=== PATIENT | female | born 1980 | race Caucasian/White ===

== ENCOUNTER 2022-12-10 06:27 | Day surgery (SDC) | payer OTHER, SELFPAY ==
[2022-12-10] VITALS (8 sets, daily range): BP systolic 105–149; BP diastolic 70–106; PULSE 80–98; RESP 12–32; TEMP 36–36.8; O2SAT 96–100; BMI 38.7
[2022-12-10] MEDS: LACTATED RINGERS 1,000 ML 100 ML IV ×2 (07:10→08:21)
--- NOTE | 2022-12-10 07:36 | PM.GYNHP.1 ---
History of Present Illness History of Present Illness Reason for admission: urinary incontinence Narrative: Ana Phillips is a 42 year old female 6 para 4 who presents for a TVT with cystoscopy due to stress urinary incontinence. [facility] Surgical History (Updated 12/31/17 @ 05:29 by Conversion Provider) History of third molar tooth extraction Status post dilation and curettage Status post laparoscopic cholecystectomy Status post laparoscopic supracervical hysterectomy (05/16/10) Social History household members: spouse and children Smoking Status: Never smoker alcohol intake: never Meds Home Medications and Allergies Home Medications Medication Instructions Recorded Confirmed Type adalimumab 40 mg/0.8 mL 40 mg SUBCUT Q2W 11/29/20 12/10/22 History subcutaneous syringe kit (Humira) Allergies Allergy/AdvReac Type Severity Reaction Status Date / Time gluten Allergy Severe Diarrhea Verified 12/10/22 06:58 adhesive Allergy Mild LOCAL RASH Verified 12/10/22 06:44 Exam Vital Signs (past 8 hours): - 12/10/22 06:47 Temperature 98.0 F Pulse Rate 86 Respiratory Rate 20 Blood Pressure 149/106 H Pulse Oximetry 98 Oxygen Delivery Method Room Air Oxygen Delivery Method Room Air Narrative Exam Narrative: HEENT: No thyromegaly, no anterior cervical or supraclavicular lymphadenopathy. Lungs: Clear to auscultation bilaterally, no wheezes. Cardiovascular: Regular rate and rhythm, no murmurs, rubs, or gallops. Abdomen: Well-healed laparoscopy scars. No hepatosplenomegaly. No masses palpable. External genitalia: Normal Vagina: Increased urethrovesical angle with Valsalva Cervix: Well-supported Bimanual exam: Uterus absent. No masses or tenderness Assessment & Plan Assessment & Plan narrative: Assessment: 42-year-old 6 para 4 with stress urinary incontinence Plan: TVT with cystoscopy The risks, benefits, and alternatives to the procedure were explained to the patient. The risks including bleeding, infection, injury to the urethra, bladder, or ureters. She understands these risks and agrees to proceed. A full par Q was held and consent form was signed. Time Spent With Patient Time with patient: less than 30 minutes
--- NOTE | 2022-12-10 07:38 | PM.PREOP ---
Pre-operative Note COVID-19 Criteria for continued procedure: Non-surgical alternatives not available or appropriate per current SOC Interval Note History & Physical reviewed/Exam performed by Physician: Yes Changes to H&P: No H&P completed within 30 days and has changed as indicated here:: 12/10/22
[2022-12-10] MEDS: CEFAZOLIN 2 GM/100 ML PREMIX 100 ML IV (07:55)
--- NOTE | 2022-12-10 08:14 | SUR.OPER ---
Lithotomy on padded OR bed, head on pillow, arms secured on padded arm boards at <90 degrees abduction. Legs secured in padded yellow fins stirrups.
[2022-12-10] MEDS: BUPIVACAINE 0.25% (PF) 30 ML, EPINEPHrine 0.15 MG INJ (08:25)
[2022-12-10] MEDS: ONDANSETRON 4 MG/2 ML INJ IV (09:41)
[2022-12-10] MEDS: OXYCODONE/ACETAMINOPHEN 5/325 TABLET 1 TAB PO (10:11)
--- NOTE | 2022-12-10 12:07 | P.OP_ITS ---
Operative Date/Time/Diagnoses Date of procedure: 12/10/22 Time of procedure: 09:10 Pre-op diagnosis: Stress urinary incontinence Increased urethrovesical angle with Valsalva Post-op diagnosis: same Procedure & Clinicians Procedure: Procedures Operation Date: 12/10/22 07:45 Actual Procedure Side Surgeon ayden TVVance w. cystoscopy (sling procedure) Not Applicable Lizy Dong MD Indications: Stress urinary incontinence Increased urethrovesical angle with Valsalva Surgeon: Lizy Dong Anesthesia Type: General and Local Operative Notes Findings: Increased urethrovesical angle with Valsalva Closure Type: primary Specimen(s): none Estimated blood loss (mL): 75 Blood products transfused: none Procedure in detail: Informed consent was obtained. The patient was taken to the operating room where she was placed in the dorsal supine position. After adequate general endotracheal anesthesia was achieved, she was placed in the dorsal lithotomy position, and prepped and draped in the usual sterile fashion. A time-out was performed. On her abdomen the midline was marked just above the pubic symphysis as well as 2 cm lateral on each side with a marker. 100 cc of sterile saline was injected above the pubic symphysis with a 20 gauge spinal needle. This was to dissect out the space of Retzius. Attention was then turned to the vagina where weighted speculum was placed into the vagina. Allis clamps were placed lateral to the urethral meatus. A catheter was placed into the bladder and the bladder was emptied of clear yellow urine. 3 cc of 0.25% Marcaine with epinephrine were injected submucosally proximally 1.5 cm away from the urethral meatus. This incision was dissected out laterally with the Metzenbaum scissors. A rigid catheter was placed into the bladder. With the bladder retracted away from the patient's right side, 10 cc of 0.25% Marcaine with epinephrine were injected in the proposed pass of the TVT. This was repeated on the patient's left side with the bladder retracted away from the patient's right side. The proposed pass was dissected out with Hegar dilators to the # 7, with the bladder neck retracted away from the patient's side being work done. The TVT was loaded on the introducer. With the bladder retracted away from the patient's right side the TVT was directed towards the patient's right shoulder, perforating the urogenital diaphragm, and coming up behind the pubic symphysis proximally 2 cm away from the midline. A 3 mm incision was made and the plastic introducer was grasped with a Tenisha. The TVT was taken off of the introducer. This was repeated on the patient's left side with the bladder neck retracted away from the patient's left side. The rigid portion of the catheter was removed from the Green. The bladder was filled with 240 cc of sterile water. The Green was r emoved from the bladder. A cystoscopy was performed. There was a bubble at the dome of the bladder. The TVT was not seen in the bladder. The introducers were pulled up with a pickup between the TVT and the urethra to prevent over tightening. The patient was made to cough. There was no leakage of fluid. The plastic sheaths were removed from the TVT by pulling up with hemostats on the abdomen, keeping a pickup between the TVT and the urethra to prevent over tightening. The TVT was cut below the skin level with scissors. Pressure was held for hemostasis. There was some bleeding noted from the vaginal incision. Pressure was held for 5 minutes. Hemostasis was achieved. The mucosa was closed with 2-0 Vicryl in a running interlocking fashion with care not to include the TVT in the suture. The abdominal incisions were closed with surgical glue. Proximally 120 cc of the water was removed from the bladder. This was clear. Sponge, lap, and instrument counts were correct x2. The patient tolerated the procedure well, and was taken to PACU in stable condition. Complications: none Post-operative Condition: stable Disposition: PACU Plan for aftercare: Home after bladder trial and recovery
== END 2022-12-10 10:43 | disposition home or self-care (01) ==
PROVIDERS: PCP Family Medicine; Referring Provider Obstetrics & Gynecology; Visit Provider Obstetrics & Gynecology
PROC: 0TSD0ZZ Reposition Urethra, Open Approach (ICD-10-PCS; CPT 57288; principal; 2022-12-10 07:45)
DX: N39.3 Stress incontinence (female) (male) (principal)
CPT/HCPCS: 57288; C1771; J0171; J0330; J0690; J1100; J1885; J2250; J2405; J2704; J3010